=== PATIENT | female | born 1970 | race Caucasian/White ===

== ENCOUNTER 2021-01-07 12:52 | Emergency (ER) | payer MEDICAID ==
[~2021-01-07] VITALS: Ht 162.6 cm; Wt 81.8 kg
[2021-01-07 14:22] LABS: BASOPHILS % (AUTO) 0.3 % (0-1); EOSINOPHILS # (AUTO) 0.1 X10'3 (0-0.9); HEMOGLOBIN 13.6 g/dl (12.0-16.0); LYMPHOCYTES # (AUTO) 2.1 X10'3 (1.1-4.8); LYMPHOCYTES % (AUTO) 28.8 % (21-51); MEAN CORPUSCULAR HEMOGLOBIN 25.5 PG (27.0-31.0); MEAN CORPUSCULAR HGB CONC 31.7 g/dL (33.0-36.5); MEAN CORPUSCULAR VOLUME 80.4 FL (78-98); MEAN PLATELET VOLUME 7.6 FL (7.4-10.4); MONOCYTES # (AUTO) 0.4 X10'3 (0-0.9); MONOCYTES % (AUTO) 5.3 % (2-12); NEUTROPHILS # (AUTO) 4.8 X10'3 (1.8-7.7); NEUTROPHILS % (AUTO) 64.6 % (42-75); PLATELET COUNT 303 X10'3 (140-440); RED BLOOD COUNT 5.35 X10'6 (4.20-5.60); RED CELL DISTRIBUTION WIDTH 14.8 % (11.5-14.5); WHITE BLOOD COUNT 7.4 X10'3 (4.5-11.0)
[2021-01-07 14:29] LABS: ALANINE AMINOTRANSFERASE 22 U/L (12-78); ALBUMIN 3.7 G/DL (3.4-5.0); ALBUMIN/GLOBULIN RATIO 0.8 (1.1-1.5); ALKALINE PHOSPHATASE 112 IU/L (46-116); ANION GAP 7 (8-16); ASPARTATE AMINO TRANSFERASE 16 U/L (10-37); BILIRUBIN,TOTAL 0.4 MG/DL (0.1-1.0); BLOOD UREA NITROGEN 8 MG/DL (7-18); BUN/CREATININE RATIO 12.3 (6.6-38.0); CALCIUM 9.1 MG/DL (8.5-10.1); CHLORIDE 107 MMOL/L (99-107); CREATININE 0.65 MG/DL (0.40-0.90); GLUCOSE 112 MG/DL (70-104); POTASSIUM 3.4 MMOL/L (3.5-5.1); SODIUM 143 MMOL/L (135-145); TOTAL CARBON DIOXIDE 29.2 MMOL/L (24-32); TOTAL PROTEIN 8.6 G/DL (6.4-8.2); eGFR > 90 ML/MIN
[2021-01-07 17:17] LABS: D-DIMER 0.88 MG/L FEU (0-0.50)
[2021-01-07] MEDS ORDERED: albuterol 2.5 MG/3 ML nebule NEB ONE (17:40)
[2021-01-07] MEDS ORDERED: iohexol 350MG/ML 100ml bottle IV ONE (17:47)
--- NOTE | 2021-01-07 18:15 | NUR ---
PT TO CT SCAN VIA WHEELCHAIR ACCOMPANIED BY TECH
[2021-01-07 19:13] VITALS: BP 128/81
[2021-01-07] MEDS ORDERED: ALBU18HF2 INH (19:19)
== END 2021-01-07 19:33 | disposition home or self-care (01) ==
LOC: ER 12:53
DX: U07.1 COVID-19 (principal); R06.02 Shortness of breath
CPT/HCPCS: 36415; 71045; 71275; 80053; 83880; 84484; 85025; 85379; 94640; 99285; Q9967; 94760

== ENCOUNTER 2022-10-28 00:03 | Emergency (ER) | payer MEDICAID ==
[~2022-10-28] VITALS: Ht 162.6 cm; Wt 95.0 kg
[~2022-10-28 00:03] MED LIST: ALBU18HF2 INH
[2022-10-28 00:16] VITALS: BP 167/106
[2022-10-28] MEDS ORDERED: HALLS - SOOTHE MENTHOL 1.8 MG cough drop LOZENGE MM ONE (01:15)
[2022-10-28] MEDS ORDERED: benzonatate 100mg capsule PO ONE (01:15)
[2022-10-28 01:57] LABS: ALANINE AMINOTRANSFERASE 27 U/L (12-78); ALBUMIN 3.5 G/DL (3.4-5.0); ALBUMIN/GLOBULIN RATIO 0.8 (1.1-1.5); ALKALINE PHOSPHATASE 92 IU/L (46-116); ANION GAP 4 (8-16); ASPARTATE AMINO TRANSFERASE 21 U/L (10-37); BILIRUBIN,TOTAL 0.4 MG/DL (0.1-1.0); BLOOD UREA NITROGEN 8 MG/DL (7-18); BUN/CREATININE RATIO 12.3 (6.6-38.0); CALCIUM 9.1 MG/DL (8.5-10.1); CHLORIDE 105 MMOL/L (99-107); CREATININE 0.65 MG/DL (0.40-0.90); GLUCOSE 123 MG/DL (70-104); POTASSIUM 3.7 MMOL/L (3.5-5.1); SODIUM 139 MMOL/L (135-145); TOTAL CARBON DIOXIDE 29.7 MMOL/L (24-32); TOTAL PROTEIN 7.9 G/DL (6.4-8.2); eGFR > 90 ML/MIN
[2022-10-28 02:00] LABS: BASOPHILS % (AUTO) 0.5 % (0-1); EOSINOPHILS # (AUTO) 1.8 X10'3 (0-0.9); EOSINOPHILS % (AUTO) 17.7 % (0-6); HEMATOCRIT 38.7 % (35.0-45.0); HEMOGLOBIN 12.6 g/dl (12.0-16.0); LYMPHOCYTES # (AUTO) 2.1 X10'3 (1.1-4.8); LYMPHOCYTES % (AUTO) 21.4 % (21-51); MEAN CORPUSCULAR HEMOGLOBIN 26.1 PG (27.0-31.0); MEAN CORPUSCULAR HGB CONC 32.5 g/dL (33.0-36.5); MEAN CORPUSCULAR VOLUME 80.4 FL (78-98); MEAN PLATELET VOLUME 7.4 FL (7.4-10.4); MONOCYTES # (AUTO) 0.6 X10'3 (0-0.9); MONOCYTES % (AUTO) 6.2 % (2-12); NEUTROPHILS # (AUTO) 5.4 X10'3 (1.8-7.7); NEUTROPHILS % (AUTO) 54.2 % (42-75); PLATELET COUNT 378 X10'3 (140-440); RED BLOOD COUNT 4.81 X10'6 (4.20-5.60); RED CELL DISTRIBUTION WIDTH 14.5 % (11.5-14.5); WHITE BLOOD COUNT 9.9 X10'3 (4.5-11.0)
[2022-10-28] MEDS ORDERED: PRED20TA PO (02:14)
[2022-10-28 02:53] LABS: PLATELET ESTIMATE NORMAL; TOTAL CELLS COUNTED 100
== END 2022-10-28 02:47 | disposition home or self-care (01) ==
LOC: ER 00:04
DX: R05.9 Cough, unspecified (principal); R09.89 Other specified symptoms and signs involving the circulatory and respiratory systems; R06.02 Shortness of breath; Z79.899 Other long term (current) drug therapy
CPT/HCPCS: 36415; 71045; 80053; 83880; 84145; 84484; 85007; 85025; 93005; 99285